=== PATIENT | female | born 1940 | race Caucasian/White ===

== ENCOUNTER → 2017-02-11 | Outpatient (CLI) | payer MEDICARE ==
[2015-09-04 14:04] VITALS: BP 137/66
[~2017-02-11] MED LIST: CEPH-263 PO; OXYC-323 PO
--- NOTE | 2017-02-11 13:04 | RAD ---
Right breast ultrasound 02/11/2017 Clinical indication: breast hematoma. Comparison: None. Findings: Patient endorses palpable abnormality in the inferior aspect of the breast post trauma. There is noticeable inferior right breast skin erythema on examination. In the area of palpable concern, there is a small ill-defined hypoechoic structure measuring 0.7 x 0.9 x 1.0 cm with no internal blood flow and suggestion of minimal internal debris at the 7:00 position 2 cm from the nipple. Impression: At the area of palpable concern at the inferior right breast 7:00 position, small 1 cm hypoechoic structure with internal debris and no internal blood flow. Findings may represent small hematoma or abscess. Follow-up limited right breast ultrasound in 6 weeks is recommended to assess for resolution. These findings were discussed with the patient in person by Dr. Flo Álvarez at 12:20 PM 02/11/2017. These findings were also discussed with Dr. Vail's nurse,Suzanne , by telephone at 1:00 PM 02/11/[address] Flo Álvarez Assessment: BI-RADS Category 3, probably benign.
== END | disposition home or self-care (01) ==
LOC: US 11:12
PROVIDERS: ATTEND Surgery
DX: N63.10 Unspecified lump in the right breast, unspecified quadrant (principal); N64.89 Other specified disorders of breast
CPT/HCPCS: 76641

== ENCOUNTER → 2017-03-25 | Outpatient (CLI) | payer MEDICARE | END | disposition home or self-care (01) | LOC: US 10:44 | DX: N63.10 Unspecified lump in the right breast, unspecified quadrant (principal); N64.89 Other specified disorders of breast | CPT/HCPCS: 76641 ==

== ENCOUNTER → 2017-09-29 | Outpatient (CLI) | payer MEDICARE ==
[~2017-09-29] MED LIST changes: -CEPH-263 PO; -OXYC-323 PO; +REGADENOSON 0.4 MG/5 ML DISP.SYRIN. IV
== END | disposition home or self-care (01) ==
LOC: NM 11:34
DX: R07.89 Other chest pain (principal); I10 Essential (primary) hypertension
CPT/HCPCS: 78452; 93017; 96374; 96375; 96376; A9500; J2785

== ENCOUNTER → 2021-04-02 | Outpatient (CLI) | payer MEDICARE ==
[2015-09-04 14:04] VITALS: BP 137/66
[~2021-04-02] MED LIST changes: +CEPH-263 PO; +OXYC1TAB15 PO; -REGADENOSON 0.4 MG/5 ML DISP.SYRIN. IV; +REGADENOSON 0.4 MG/5 ML DISP.SYRIN. IV ONE
--- NOTE | 2021-04-02 12:37 | RAD ---
MR#: [id number] Date of Study: 04/02/2021 Ordering Physician: MARYSOL LI, Referring Physician: JANA ALONZO Tech: KRYS De Santiago ARRT (R) (N) APPROVED REPORT Test Type: Pharmacological Stress Nurse/Tech: Shweta DALE Test Indications: CHEST PAIN Cardiac History: HTN Medications: See EMR Medical History: See EMR Resting ECG: SR Resting Heart Rate: 62 bpm Resting Blood Pressure: 127/57mmHg Pretest Chest Pain: None Nurse/Tech Notes Lungs diminished, clear. S1 S2 heart tones. Pharm. Details Pharmacologic stress testing was performed using 0.4mg per 5ml of regadenoson given intravenously ove r 7-10 seconds. Stress Symptoms No chest pain or symptoms. POST EXERCISE Reason for Termination: Infusion complete Max HR: 124 bpm Max Blood Pressure: 127/67mmHg Blood Pressure response to exercise: Normal blood pressure response during stress. Heart Rate response to exercise: normal response Chest Pain: No. Arrhythmia: No. ST Change: No. INTERPRETATION Stress EKG Conclusion: Baseline EKG showed sinus rhythm. No ischemic changes at peak stress. No arr hythmias. Imaging Protocol IMAGE PROTOCOL: Rest Tc-99m/stress Tc-99m 1 day Rest: Stress: Viability: Radiopharm.Tc99m SeayxvokaRe07j Sestamibi Ffrj72zId 33mCi Img Date 04/02/2021 04/02/2021 Inj-Img Olow77xgq. 60min. Rest Admin Site:IV - Left AntecubitalAdministrator:Reno Lloyd RT (R)(N) Stress Admin Site: IV - Left AntecubitalAdministrator: KRYS De Santiago ARRT (R)(N) STRESS DATA End Diast. Vol.54.0mlLVEDV index BSA32.0ml End Syst. Vol.10.0mlLVESV index BSA6.0ml Myocardial Mass98.0gEject. Jobdsgdf99.0% Stress Scores Regional WT1.00Summed WT3.00 Regional WM0.00Summed WM0.00 Study quality was good. Left Ventricular size was Normal at Rest and Stress. Lung uptake was . Left Ventricular ejection fraction is 78%. The rest and stress images show normal perfusion, normal contraction and thickening. LV Perf. Quant 17 Seg. SSS0.00 17 Seg. SRS0.00 17 Seg. SDS0.00 Stress Defect Extent (% LAD)0.00Rest Defect Extent (% LAD)0.00Rev. Defect Extent (% LAD)0.00 Stress Defect Extent (% LCX) 0.00Rest Defect Extent (% LCX)0.00Rev. Defect Extent (% LCX)0.00 Stress Defect Extent (% RCA)0.00Rest Defect Extent (% RCA)0.00Rev. Defect Extent (% RCA)0.00 Stress Defect Extent (% KAUR)0.00Rest Defect Extent (% KAUR)0.00Rev. Defect Extent (% KAUR)0.00 Conclusion 1. Regadenoson cardioisotope stress test did not show any evidence of ischemia or infarct. 2. Normal left ventricular systolic function with ejection fraction calculated at 78%. 3. Low risk for cardiac events. Signed by : Marysol Li, Electronically Approved : 04/02/2021 12:36:53
--- NOTE | 2021-04-02 13:04 | CARD ---
MR#: [id number] Date of Study: 04/02/2021 Ordering Physician: MARYSOL LI, Referring Physician: MARYSOL LI, Tech: Leslie Christensen [facility] APPROVED REPORT EXAM: Two-dimensional and M-mode echocardiogram with Doppler and color Doppler. Other Information Quality : GoodHR: 73bpm Rhythm : NSR INDICATION Hypertension/HCVD RISK FACTORS Hypertension 2D DIMENSIONS RVDd2.7 (2.9-3.5cm)Left Atrium(2D)3.0 (1.6-4.0cm) IVSd1.1 (0.7-1.1cm)Aortic Root(2D)3.4 (2.0-3.7cm) LVDd4.0 (3.9-5.9cm)LVOT Diameter1.9 (1.8-2.4cm) PWd1.1 (0.7-1.1cm)LVDs2.4 (2.5-4.0cm) FS (%) 39.2 %SV48.0 ml LVEF(%)70.3 (>50%) Aortic Valve AoV Peak [place].137.1cm/sAoV VTI27.5cm AO Peak GR.7.5mmHgLVOT Peak [place].116.4cm/s AO Mean GR.4mmHgAVA (VMAX)2.42cm2 Mitral Valve MV E Pvvjoqjy20.4cm/sMV DECEL [id number] MV A Qqbhiyyi418.9cm/sE/A Ratio0.6 Pulmonary Valve PV Peak Ouxnyisc006.7cm/s Tricuspid Valve TR P. Wrqaqcfh278ih/sTR Peak Gr.21mmHg LEFT VENTRICLE The left ventricle is normal size. There is borderline to mild concentric left ventricular hypertroph y. The left ventricular systolic function is normal. Estimated ejection fraction 60%. There is cristian l LV segmental wall motion. Transmitral Doppler flow pattern is Grade I-abnormal relaxation pattern. RIGHT VENTRICLE The right ventricle is normal size. There is normal right ventricular wall thickness. The right ventr icular systolic function is normal. ATRIA The left atrium size is normal. The right atrium size is normal. The interatrial septum is intact wit h no evidence for an atrial septal defect or patent foramen ovale as noted on 2-D or Doppler imaging. AORTIC VALVE The aortic valve is normal in structure and function. Doppler and Color Flow revealed no significant aortic regurgitation. There is no significant aortic valvular stenosis. MITRAL VALVE The mitral valve is normal in structure and function. There is no evidence of mitral valve prolapse. There is no mitral valve stenosis. Doppler and Color-flow revealed trace mitral regurgitation. TRICUSPID VALVE The tricuspid valve is normal in structure and function. Doppler and Color Flow revealed trace tricus pid regurgitation. Estimated PAP 23 mmHg. There is no tricuspid valve stenosis. PULMONIC VALVE The pulmonary valve is normal in structure and function. Doppler and Color Flow revealed mild pulmoni c valvular regurgitation. GREAT VESSELS The aortic root is normal in size. The ascending aorta is normal in size. The IVC is normal in size a nd collapses >50% with inspiration. PERICARDIAL EFFUSION There is no evidence of significant pericardial effusion. Critical Notification Critical Value: No <Conclusion> The left ventricular systolic function is normal. Estimated ejection fraction 60%. There is normal LV segmental wall motion. Transmitral Doppler flow pattern is Grade I-abnormal relaxation pattern. Trace mitral regurgitation. Trace tricuspid regurgitation. Estimated PAP 23 mmHg. There is no evidence of significant pericardial effusion. Signed by : Marysol Li, Electronically Approved : 04/02/2021 13:03:17
== END ==
LOC: ECHO 07:52
PROVIDERS: ATTEND Internal Medicine Cardiovascular Disease
DX: I37.1 Nonrheumatic pulmonary valve insufficiency (principal); I51.7 Cardiomegaly; R07.9 Chest pain, unspecified; I10 Essential (primary) hypertension
CPT/HCPCS: 78452; 93017; 93306; A9500; J2785